=== PATIENT | female | born 1990 | race Caucasian/White ===

== ENCOUNTER 2021-06-21 12:50 | Emergency (ER) | payer BC, SELFPAY ==
[2021-06-21 12:55] VITALS: BP 124/80; PULSE 91; RESP 18; TEMP 36.2; O2SAT 99
[2021-06-21 13:07] LABS: Basophils Absolute Auto 0.1 K/mm3 (0.0-0.1); Basophils Percent Auto 0.9 % (0.2-1.2); Eosinophils Absolute Auto 0.3 K/mm3 (0-0.3); Hematocrit 41.9 % (37.0-47.0); Hemoglobin 13.7 g/dL (12.0-15.0); Immature Granulocyte Absolute 0.04 K/mm3 (0.00-0.031); Immature Granulocyte Percent A 0.5 % (0-0.5); Lymphocytes Absolute Auto 3.28 K/mm3 (0.9-3.2); Lymphocytes Percent Auto 37.7 % (18.3-44.2); Mean Corpuscular HGB Conc 32.7 g/dl (32-36); Mean Corpuscular Hemoglobin 29.9 pg (26-34); Mean Corpuscular Volume 91.5 fl (80-100); Mean Platelet Volume 9.3 fl (7.4-10.4); Monocytes Absolute Auto 0.5 K/mm3 (0.1-0.6); Monocytes Percent Auto 5.5 % (2.6-8.5); Neutrophils Absolute Auto 4.6 K/mm3 (1.3-6.7); Neutrophils Percent Auto 52.4 % (45.5-73.1); Platelet Count Result 270 k/mm3 (150-375); Red Blood Count 4.58 M/mm3 (4.2-5.4); Red Cell Distribution Width 12.3 % (11.5-14.5); White Blood Count 8.7 K/mm3 (4.5-10.0)
[2021-06-21 13:16] LABS: Prothrombin Time 12.6 Seconds (11.1-14.7)
[2021-06-21 13:17] LABS: Partial Thromboplastin Time 28.4 SECONDS (22.3-36.8)
[2021-06-21 13:24] LABS: Alanine Aminotransferase 23 U/L (4-35); Albumin Level 4.8 g/dL (3.5-5.1); Alkaline Phosphatase 72 U/L (38-126); Anion Gap 8 mmol/L (8-16); Aspartate Amino Transferase 35 U/L (14-36); Bilirubin,Total 0.6 mg/dL (0.2-1.3); Blood Urea Nitrogen 17 mg/dL (7-17); Calcium 9.2 mg/dL (8.4-10.2); Carbon Dioxide 26 mmol/L (22-30); Chloride 104 mmol/L (98-107); Estimated CRCL calculation 102 ml/min; Estimated Glomerular Filt Rate > 60; Glucose 110 mg/dL (65-110); Sodium 138 mmol/L (137-145)
[2021-06-21 14:10] VITALS: BP 119/82; PULSE 91; RESP 18; TEMP 36.4; O2SAT 98
--- NOTE | 2021-06-21 14:20 | PC.NURSE ---
H&H stable. No need for additional type and screen. aware, OK to cancel order.
--- NOTE | 2021-06-21 14:34 | ED.GENADULT ---
HPI - General Adult General Chief complaint: Abdominal Pain Stated complaint: ABD Pain Time Seen by Provider: 06/21/21 13:32 History of Present Illness HPI narrative: Patient is a 31-year-old female who presents ER with abdominal cramping and bloating. Ongoing since this morning. Looking the epigastric region. Caused her have nausea and vomiting. No coffee-ground emesis and no bright red blood. She reports yellow stomach acid. Patient also reports 2 dark black stools this morning and when she wiped she noticed some bright red blood on the paper. No bright red blood mixed in with the stool or on the toilet. No history of GI bleed. She took 2 ibuprofens yesterday but does not use NSAIDs daily. No alleviating factors. Related Data Allergies Allergy/AdvReac Type Severity Reaction Status Date / Time No Known Allergies Allergy Verified 06/21/21 14:14 Review of Systems Review of Systems: All systems reviewed & are unremarkable except as noted in HPI and below Constitutional: Constitutional: Denies chills, Denies fever(s) and Denies weakness ENT: Denies nasal congestion and Denies sore throat Gastrointestinal: Gastrointestinal: Reports abdominal pain, Denies constipation, Denies diarrhea, Reports nausea and Reports vomiting Comments: Dark black stool with bright red when wiping. Genitourinary: Genitourinary: Denies dysuria and Denies flank pain PMFSH Past Medical History Medical History (Updated 06/21/21 @ 14:50 by Jackson Tovar MD) Healthy female adult Surgical History Surgical History (Updated 06/21/21 @ 14:50 by Jackson Tovar MD) No pertinent past surgical history Social History Social History Smoking status: Never smoker Exam Narrative: GENERAL: Well-appearing, well-nourished, and in no acute distress. HEAD: Normocephalic, atraumatic. CHEST: Clear to auscultation. No respiratory distress. HEART: Regular rate and rhythm. Normal peripheral pulses. ABDOMEN: Soft, nontender, nondistended. Rectal exam without fissure or thrombosed/bleeding hemorrhoid. Stool soft/brown without gross blood. Hemoccult negative. EXTREMITIES: Normal range of motion. No edema. SKIN: Warm, dry, no rash. NEURO: Alert and oriented x3. PSYCH: Normal mood and affect. Course Course Emergency Course: Labs and examination unremarkable. No evidence of GI bleed. Likely GI illness causing cramping and bloating. Will start on PPI. Discharge home. Vital Signs Vital signs: Vital Signs Temperature 97.1 F L 06/21/21 12:55 Pulse Rate 91 06/21/21 12:55 Respiratory Rate 18 06/21/21 12:55 Blood Pressure 124/80 06/21/21 12:55 Pulse Oximetry 99 06/21/21 12:55 Temperature 97.5 F L 06/21/21 14:10 Pulse Rate 91 06/21/21 14:10 Respiratory Rate 18 06/21/21 14:10 Blood Pressure 119/82 06/21/21 14:10 Pulse Oximetry 98 06/21/21 14:10 Medical Decision Making Vital Signs Vital Signs: Vital Signs Temperature 97.1 F L 06/21/21 12:55 Pulse Rate 91 06/21/21 12:55 Respiratory Rate 18 06/21/21 12:55 Blood Pressure 124/80 06/21/21 12:55 Pulse Oximetry 99 06/21/21 12:55 Temperature 97.5 F L 06/21/21 14:10 Pulse Rate 91 06/21/21 14:10 Respiratory Rate 18 06/21/21 14:10 Blood Pressure 119/82 06/21/21 14:10 Pulse Oximetry 98 06/21/21 14:10 Lab Data Result diagrams: 06/21/21 12:57 06/21/21 12:57 Labs: Lab Results 06/21/21 06/21/21 06/21/21 Range/Units 12:57 12:57 12:57 WBC 8.7 (4.5-10.0) K/mm3 RBC 4.58 (4.2-5.4) M/mm3 Hgb 13.7 (12.0-15.0) g/dL Hct 41.9 (37.0-47.0) % MCV 91.5 (80-100) fl MCH 29.9 (26-34) pg MCHC 32.7 (32-36) g/dl RDW 12.3 (11.5-14.5) % Plt Count 270 (150-375) k/mm3 MPV 9.3 (7.4-10.4) fl Immature Gran % (Auto) 0.5 (0-0.5) % Neut % (Auto) 52.4 (45.5-73.1) % Lymph % (Auto) 37.7 (18.3-44.2) % [place] % (Auto) 5.5 (2.6-8.5) % Eos % (Auto) 3.
== END 2021-06-21 14:50 | disposition home or self-care (01) ==
PROVIDERS: Emergency Provider Emergency Medicine
DX: R10.13 Epigastric pain (principal)
CPT/HCPCS: 36415; 80053; 85025; 85610; 85730; 86850; 86900; 86901; 99283